=== PATIENT | female | born 1960 ===

== ENCOUNTER 2016-11-19 07:11 | Emergency (ER) | payer BC ==
[2016-11-19 07:31] VITALS: BP 100/69
--- NOTE | 2016-11-19 07:42 | UC ---
Bite Injury/Animal HPI - HPI Summary HPI Summary: BAT IN BEDROOM 2 WEEKS AGO. NO BITE SHE IS AWARE OF. UNKNOWN DATE OF LAST TETANUS. - History of Current Complaint Chief Complaint: UCBiteInjury Stated Complaint: BAT EXPOSURE Time Seen by Provider: 11/19/16 07:26 Hx Obtained From: Patient Hx Last Menstrual Period: IRREGULAR Severity Currently: None Pain Intensity: 0 Pain Scale Used: 0-10 Numeric Has Animal Been Immunized?: No Animal Available for Observation: No Animal Control Notified: Yes - Allergies/Home Medications Allergies/Adverse Reactions: Allergies Allergy/AdvReac Type Severity Reaction Status Date / Time No Known Allergies Allergy Verified 11/19/16 07:28 PMH/Surg Hx/FS Hx/Imm Hx Previously Healthy: Yes - Surgical History Surgical History: None - Family History Known Family History: Negative: Hypertension, Diabetes - Social History Alcohol Use: None Substance Use Type: None Smoking Status (MU): Never Smoked Tobacco Review of Systems Constitutional: Negative Skin: Negative Respiratory: Negative Cardiovascular: Negative Gastrointestinal: Negative All Other Systems Reviewed And Are Negative: Yes Physical Exam Triage Information Reviewed: Yes Appearance: Well-Appearing, No Pain Distress, Well-Nourished Vital Signs: Initial Vital Signs Temp 98.2 F 11/19/16 07:29 Pulse 60 11/19/16 07:29 Resp 14 11/19/16 07:29 BP 100/69 11/19/16 07:29 Pulse Ox 100 11/19/16 07:29 Vital Signs Reviewed: Yes Eyes: Positive: Conjunctiva Clear ENT: Positive: Hearing grossly normal Neck: Positive: Supple Respiratory: Positive: No respiratory distress, No accessory muscle use Cardiovascular: Positive: Pulses Normal Musculoskeletal: Positive: No Edema Neurological: Positive: Alert Psychological: Positive: Age Appropriate Behavior Skin: Negative: rashes Bite Injury Course/Dx - Differential Dx/Diagnosis Provider Diagnoses: BAT EXPOSURE/RABIES PROPHYLAXIS Discharge - Discharge Plan Condition: Stable Disposition: HOME Patient Education Materials: Rabies Vaccine (By injection), Rabies Immune Globulin (By injection), Rabies (ED), Rabies Vaccine (ED) Referrals: No Primary Care Phys,NOPCP [Primary Care Provider] - Additional Instructions: FOLLOW-UP AT THE HEALTH DEPARTMENT IN 3 DAYS FOR YOUR NEXT VACCINATION. TETANUS IMMUNIZATION GIVEN (TDAP): You have been given an immunization against tetanus. Please record this in your records. In general, a booster is needed only once every 10 years. The tetanus shot protects against tetanus or "lockjaw," which is a complication of certain wound infections (the tetanus shot cannot protect against the actual infection). The immunization site may become warm and red due to local reaction. If this occurs, apply warm compresses and take aspirin or ibuprofen to reduce inflammation and discomfort. Return for evaluation if the reaction becomes severe.
[2016-11-19] MEDS ORDERED: Rabies Vaccine, PCEC INJ* 1 ml IM ONE (07:49)
[2016-11-19] MEDS ORDERED: Rabies Immune Globulin 10 ML* 150 UNIT/ML VIAL IM ONE (07:51)
[2016-11-19] MEDS ORDERED: Tetan/Diph/Pertus SYR(Tdap)* 0.5 ML SYR(BOOSTRIX) use SYR IM ONE (07:53)
[2016-11-19] MEDS ORDERED: Rabies VIRUS VACCINE, HDCV* 2.5 UNIT/ML 1 ML IM ONE (07:57)
== END 2016-11-19 09:31 | disposition home or self-care (01) ==
LOC: UCEAST 07:11
DX: Z20.3 Contact with and (suspected) exposure to rabies (principal)
CPT/HCPCS: 90375; 90471; 90472; 90675; 90715; 96372; 99201; G0463